=== PATIENT | male | born 1965 | race Caucasian/White ===

== ENCOUNTER 2019-08-29 08:57 | Outpatient (CLI) | payer BC, SELFPAY ==
--- NOTE | ~2019-08-29 | MR_ITS ---
EXAMINATION: MR lumbar spine wo con DATE: 08/29/2019 10:15 INDICATION: Pain and numbness of the legs. Low back pain. TECHNIQUE: Magnetic resonance imaging (MRI) of the lumbar spine was performed without intravenous con trast. Sequences included sagittal T2-weighted FSE, sagittal T2-weighted FS FSE, sagittal T1-weighted FSE, and axial T2-weighted FSE. COMPARISON: None FINDINGS: There is 3 mm retrolisthesis of L5 on S1. Vertebral body heights are normal. There is mildl y decreased disc height at L2-L3 at L3-L4 and severely decreased disc height at L5-S1. The distal spi nal cord signal intensity is normal. The conus medullaris is at L1-L2. The following disc levels are specifically discussed: L1-L2: The disc does not extend beyond the endplate margin. There is mild left facet joint osteoarthr itis. There is no neural foraminal stenosis. There is no central canal stenosis. L2-L3: The disc is bulging and has an annular fissure. There is mild bilateral facet joint osteoarthr itis. There is mild bilateral neural foraminal stenosis. There is mild central canal stenosis. L3-L4: The disc is bulging and has an annular fissure. There is mild bilateral facet joint osteoarthr itis. There is moderate bilateral neural foraminal stenosis. There is mild central canal stenosis. L4-L5: The disc is bulging. There is moderate bilateral facet joint osteoarthritis. There is moderate bilateral neural foraminal stenosis. There is mild central canal stenosis. L5-S1: The disc is bulging and has an annular fissure. There is moderate bilateral facet joint osteoa rthritis. There is moderate bilateral neural foraminal stenosis. There is mild central canal stenosis . IMPRESSION: 1. Severe lower lumbar spondylosis. Reviewed, dictated and finalized at location A.
--- NOTE | ~2019-08-29 | MR_ITS ---
EXAMINATION: MR cervical spine wo con DATE: 08/29/2019 10:15 INDICATION: Cervical degenerative disc disease. Numbness in the arms. TECHNIQUE: Magnetic resonance imaging (MRI) of the cervical spine was performed without intravenous c ontrast. Sequences included sagittal T2-weighted FSE, sagittal T2-weighted FS FSE, sagittal T1-weight ed FSE, axial MERGE, and axial T2-weighted FSE. COMPARISON: None FINDINGS: Bone alignment is normal. Vertebral body heights are normal. There is mildly decreased disc height at C3-C4 and C4-C5 and moderately decreased disc height at C5-C6 and C6-C7. There is increase d T2-weighted signal intensity in the spinal cord at C4-C5, consistent with myelomalacia. The followi ng disc levels are specifically discussed: C2-C3: The disc does not extend beyond the endplate margin. There is no uncovertebral joint osteoarth ritis. There is mild right and moderate left facet joint osteoarthritis. There is mild left neural fo raminal stenosis. There is no central canal stenosis. C3-C4: The disc is bulging. There is severe right and moderate left uncovertebral joint osteoarthriti s. There is mild bilateral facet joint osteoarthritis. There is moderate right and mild left neural f oraminal stenosis. There is mild central canal stenosis. C4-C5: The disc is bulging. There is severe right and moderate left uncovertebral joint osteoarthriti s. There is mild bilateral facet joint osteoarthritis. There is moderate right and mild left neural f oraminal stenosis. There is severe central canal stenosis with ventral and dorsal indentation of spin al cord. C5-C6: The disc is bulging. There is severe right and moderate left uncovertebral joint osteoarthriti s. There is mild bilateral facet joint osteoarthritis. There is moderate right and mild left neural f oraminal stenosis. There is mild central canal stenosis. C6-C7: The disc is bulging. There is severe bilateral uncovertebral joint osteoarthritis. There is mi ld bilateral facet joint osteoarthritis. There is moderate bilateral neural foraminal stenosis. There is mild central canal stenosis. C7-T1: The disc does not extend beyond the endplate margin. There is no uncovertebral joint osteoarth ritis. There is moderate right and mild left facet joint osteoarthritis. There is mild bilateral neur al foraminal stenosis. There is no central canal stenosis. IMPRESSION: 1. Myelomalacia at C4-C5. 2. Severe cervical spondylosis. Reviewed, dictated and finalized at location A.
[2019-08-29 11:26] LABS: Basophils Absolute Auto 0.1 K/mm3 (0.0-0.1); Eosinophils Absolute Auto 0.1 K/mm3 (0-0.3); Hematocrit 44.9 % (42.0-52.0); Hemoglobin 14.8 g/dL (14.0-18.0); Immature Granulocyte Absolute 0.01 K/mm3 (0.00-0.031); Immature Granulocyte Percent A 0.2 % (0-0.5); Lymphocytes Absolute Auto 1.56 K/mm3 (0.9-3.2); Lymphocytes Percent Auto 31.2 % (18.3-44.2); Mean Corpuscular Hemoglobin 29.5 pg (26-34); Mean Corpuscular Volume 89.6 fl (80-100); Mean Platelet Volume 8.8 fl (7.4-10.4); Monocytes Absolute Auto 0.4 K/mm3 (0.1-0.6); Monocytes Percent Auto 8.8 % (2.6-8.5); Neutrophils Absolute Auto 2.9 K/mm3 (1.3-6.7); Neutrophils Percent Auto 57.8 % (45.5-73.1); Platelet Count Result 262 k/mm3 (150-375); Red Blood Count 5.01 M/mm3 (4.6-6.20); Red Cell Distribution Width 12.4 % (11.5-14.5)
[2019-08-29 11:40] LABS: Alanine Aminotransferase 22 U/L (4-50); Albumin Level 4.5 g/dL (3.5-5.1); Alkaline Phosphatase 61 U/L (38-126); Aspartate Amino Transferase 32 U/L (17-59); Bilirubin,Total 0.8 mg/dL (0.2-1.3); Blood Urea Nitrogen 14 mg/dL (9-20); Calcium 9.2 mg/dL (8.4-10.2); Carbon Dioxide 33 mmol/L (22-30); Chloride 99 mmol/L (98-107); Cholesterol 251 mg/dL (0-200); Estimated Glomerular Filt Rate > 60; Glucose 92 mg/dL (75-110); HDL Direct 56 mg/dL; Potassium 4.6 mmol/L (3.4-5.0); Sodium 138 mmol/L (137-145); Triglycerides 77 mg/dL (<150)
[2019-08-29 11:52] LABS: LDL Cholesterol Direct 175 mg/dL
== END 2019-08-29 08:58 | disposition home or self-care (01) ==
LOC: ANHIMG 09:00
PROVIDERS: PCP Internal Medicine; Visit Provider Clinical Nurse Specialist
DX: Z00.00 Encounter for general adult medical examination without abnormal findings (principal); R20.0 Anesthesia of skin; M47.816 Spondylosis without myelopathy or radiculopathy, lumbar region; G95.89 Other specified diseases of spinal cord; M47.812 Spondylosis without myelopathy or radiculopathy, cervical region
CPT/HCPCS: 36415; 72141; 72148; 80053; 80061; 84443; 85025

== ENCOUNTER 2019-09-12 17:27 | Outpatient (CLI) | payer BC, SELFPAY ==
--- NOTE | ~2019-09-12 | MR_ITS ---
EXAMINATION: MR brain/brain stem wo/w con DATE: 09/12/2019 18:41 INDICATION: Increased weakness and difficulty balancing. TECHNIQUE: Magnetic resonance imaging (MRI) of the brain and brainstem was performed without and with 15 mL Multihance intravenous contrast. Sequences included sagittal and axial T1-weighted SE, axial d iffusion-weighted FS SE, axial T2*-weighted GRE, axial T2-weighted FLAIR, and axial T2-weighted FSE. Postcontrast axial and coronal T1-weighted SE was obtained. Apparent diffusion coefficient (ADC) maps were created. COMPARISON: None. FINDINGS: There are no areas of restricted diffusion to suggest acute infarction. No intracranial hemorrhage or abnormal intracranial mass lesion. There are no intraparenchymal signal abnormalities seen on the ot her pulse sequences. The ventricles are symmetric and normal in size. There are no abnormal extra-axi al fluid collections. Flow voids are seen in the cerebral arteries on the T2-weighted sequences consi stent with their expected patency. Visualized orbits and soft tissues are unremarkable. There are no areas of abnormal enhancement on the post contrast images. IMPRESSION: 1. Minimal brain MR. Reviewed, dictated and finalized at location A. IMPRESSION: 1. Minimal brain MR.
== END 2019-09-12 17:28 | disposition home or self-care (01) ==
PROVIDERS: PCP Internal Medicine; Visit Provider Clinical Nurse Specialist
DX: R26.89 Other abnormalities of gait and mobility (principal)
CPT/HCPCS: 70553

== ENCOUNTER 2019-09-25 08:35 | Outpatient (CLI) | payer BC, SELFPAY ==
--- NOTE | 2019-09-25 11:00 | NEURO_ITS ---
Patient Number: [id number] Impression: # Complains of numbness in upper and lower extremities. # Right ulnar neuropathy across the elbow. # No Carpal Tunnel Syndrome. # Normal needle/EMG exam; no evidence of myotonia or denervation potentials. Nerve Conduction Studies Anti Sensory Summary Table Stim Site NR Peak (ms) P-T Amp (?V) Site1 Site2 Delta-P (ms) Dist (cm) Brooks (m/s) Left Median Anti Sensory (2-3nd Digit) Wrist 2.9 53.9 Wrist 2-3nd Digit 2.9 14.0 48 Wrist 2.9 52.3 Wrist 2-3nd Digit 2.9 14.0 48 Right Median Anti Sensory (2-3nd Digit) Wrist 2.9 26.2 Wrist 2-3nd Digit 2.9 14.0 48 Wrist 2.8 25.8 Wrist 2-3nd Digit 2.9 14.0 48 Left Radial Anti Sensory (Base 1st Digit) Wrist 2.6 23.1 Wrist Base 1st Digit 2.6 0.0 Right Radial Anti Sensory (Base 1st Digit) Wrist 2.5 16.4 Wrist Base 1st Digit 2.5 0.0 Left Sup Fibular Anti Sensory (Ant Lat Mall) 14 cm 3.7 8.3 14 cm Ant Lat Mall 3.7 16.0 43 Right Sup Fibular Anti Sensory (Ant Lat Mall) 14 cm 3.6 7.1 14 cm Ant Lat Mall 3.6 16.0 44 Left Sural Anti Sensory (Lat Mall) Calf 3.9 5.9 Calf Lat Mall 3.9 16.0 41 Right Sural Anti Sensory (Lat Mall) Calf 4.3 4.1 Calf Lat Mall 4.3 17.0 40 Left Ulnar Anti Sensory (5th Digit) Wrist 3.0 41.2 Wrist 5th Digit 3.0 14.0 47 Right Ulnar Anti Sensory (5th Digit) Wrist 2.9 59.4 Wrist 5th Digit 2.9 14.0 48 Motor Summary Table Stim Site NR Onset (ms) O-P Amp (mV) Site1 Site2 Delta-0 (ms) Dist (cm) Brooks (m/s) Left Median Motor (Abd Poll Brev) Wrist 3.1 2.5 Elbow Wrist 5.4 32.0 59 Elbow 8.5 2.1 Right Median Motor (Abd Poll Brev) Wrist 3.3 3.0 Elbow Wrist 4.9 29.0 59 Elbow 8.2 2.4 Left Peroneal Motor (Vastus Med) Ankle 4.6 2.2 Popit Ankle 9.2 41.0 45 Popit 13.8 2.0 Right Peroneal Motor (Vastus Med) Ankle 4.3 4.2 Popit Ankle 8.3 40.0 48 Popit 12.6 4.1 Left Tibial Motor (Abd Clifford Brev) Ankle 5.0 2.9 Knee Ankle 9.8 43.0 44 Knee 14.8 1.8 Right Tibial Motor (Abd Clifford Brev) Ankle 4.5 2.2 Knee Ankle 9.5 44.0 46 Knee 14.0 1.3 Left Ulnar Motor (Abd Dig Minimi) Wrist 3.0 4.4 A Elbow Wrist 5.5 31.0 56 A Elbow 8.5 3.3 Right Ulnar Motor (Abd Dig Minimi) Wrist 3.0 4.2 A Elbow Wrist 6.2 30.0 48 A Elbow 9.2 2.9 B Elbow Wrist 3.8 22.0 58 B Elbow 6.8 2.0 F Wave Studies NR F-Lat (ms) L-R F-Lat (ms) Left Median (Mrkrs) (Abd Poll Brev) 30.39 0.37 Right Median (Mrkrs) (Abd Poll Brev) 30.76 0.37 Left Peroneal (Mrkrs) (EDB) 55.16 0.33 Right Peroneal (Mrkrs) (EDB) 54.83 0.33 Left Tibial (Mrkrs) (Abd Hallucis) 54.04 1.02 Right Tibial (Mrkrs) (Abd Hallucis) 55.05 1.02 Left Ulnar (Mrkrs) (Abd Dig Min) 31.95 0.45 Right Ulnar (Mrkrs) (Abd Dig Min) 31.51 0.45 EMG Side Muscle Nerve Root Ins Act Fibs Amp Dur Recrt Comment Right 1stDorInt Ulnar C8-T1 Nml Nml Nml Nml Nml Right Ext Indicis Radial (Post Int) C7-8 Nml Nml Nml Nml Nml Right Ext Digitorum Radial (Post Int) C7-8 Nml Nml Nml Nml Nml Right BrachioRad Radial C5-6 Nml Nml Nml Nml Nml Right PronatorTeres Median C6-7 Nml Nml Nml Nml Nml Right Abd Poll Brev Median C8-T1 Nml Nml Nml Nml Nml
== END 2019-09-25 08:36 | disposition home or self-care (01) ==
LOC: ANHNEURO 08:36
PROVIDERS: PCP Internal Medicine; Visit Provider Clinical Nurse Specialist
DX: R20.2 Paresthesia of skin (principal); G56.01 Carpal tunnel syndrome, right upper limb
CPT/HCPCS: 95886; 95913

== ENCOUNTER 2019-10-13 12:45 | Outpatient (CLI) | payer BC, SELFPAY ==
[2019-10-13 13:41] LABS: CRP < 0.5 mg/dL (<1.0); Creatine Kinase 117 U/L (55-170); Lactate Dehydrogenase 399 U/L (313-618)
[2019-10-13 13:49] LABS: Creatine Kinase MB 1.4 ng/mL (0.0-2.37)
[2019-10-13 14:14] LABS: Erythrocyte Sedimentation Rate 6 mm/hr (0-20)
== END 2019-10-13 12:46 | disposition home or self-care (01) ==
PROVIDERS: PCP Internal Medicine; Visit Provider Clinical Nurse Specialist
DX: M62.81 Muscle weakness (generalized) (principal)
CPT/HCPCS: 36415; 82550; 82553; 83615; 85652; 86038; 86140

== ENCOUNTER 2020-11-23 10:46 | Outpatient (CLI) | payer BC, SELFPAY ==
--- NOTE | ~2020-11-23 | US_ITS ---
EXAMINATION: US thyroid DATE: 11/23/2020 11:20 INDICATION: Nontoxic single thyroid nodule. TECHNIQUE: Multiple ultrasound images of the thyroid were obtained. COMPARISON: None. FINDINGS: The right thyroid lobe measures 5.1 x 1.5 x 1.4 cm. The left thyroid lobe measures 5.2 x 1.6 x 1.5 c m. Posterior to the inferior right thyroid, there is a 1.3 x 1.0 cm solid, hypoechoic, tbrox-jost-cr ll mass with smooth margin with punctate echogenic foci. IMPRESSION: 1. 1.3 cm mass posterior to the inferior right thyroid lobe, which may be a parathyroid adenoma or mi ldly enlarged lymph node. Correlate clinically for hyperparathyroidism. Reviewed, dictated and finalized at location A. IMPRESSION: 1. 1.3 cm mass posterior to the inferior right thyroid lobe, which may be a par athyroid adenoma or mildly enlarged lymph node. Correlate clinically for hyperp arathyroidism.
== END 2020-11-23 10:47 | disposition home or self-care (01) ==
PROVIDERS: PCP Internal Medicine; Visit Provider Nurse Practitioner
DX: E04.1 Nontoxic single thyroid nodule (principal)
CPT/HCPCS: 76536

== ENCOUNTER 2020-12-15 10:11 | Outpatient (CLI) | payer BC, SELFPAY ==
--- NOTE | ~2020-12-15 | US_ITS ---
EXAMINATION: US FNA w image guidance DATE: 12/15/2020 11:16 INDICATION: Nontoxic single thyroid nodule TECHNIQUE: A time-out was performed to verify the patient's name, date of , and procedure to be performed . The procedure and its benefits and risks were discussed with the patient. Risks specifically discus sed included bleeding and infection. The patient understood the risks and agreed to proceed. The neck was prepped and draped in the usual sterile manner. 3 mL 1% lidocaine was used for local anesthesia . Ex passes were made with a 25G needle into the lesion. Appropriate needle location was documented with continuous sonographic guidance. The specimens were passed to the nanotechnology engineering technologist i n the room. A sterile bandage was applied. There were no immediate complications. FINDINGS: Grayscale ultrasound images demonstrate biopsy needles advanced into a 1.1 x 1.0 x 0.9 cm solid hypoe choic nodule along the inferior margin of the left thyroid. Differential would include exophytic thyr oid nodule, parathyroid adenoma or enlarged lymph node. IMPRESSION: 1. Successful ultrasound-guided fine needle aspiration of indeterminate 1.1 cm solid nodule along th e inferior margin of the right thyroid with differential as detailed above. Reviewed, dictated and finalized at location A. IMPRESSION: 1. Successful ultrasound-guided fine needle aspiration of indeterminate 1.1 cm solid nodule along the inferior margin of the right thyroid with differential as detailed above.
== END 2020-12-15 10:12 | disposition home or self-care (01) ==
PROVIDERS: PCP Internal Medicine; Visit Provider Nurse Practitioner
DX: E04.1 Nontoxic single thyroid nodule (principal)
CPT/HCPCS: 10005; 88173; 88305

== ENCOUNTER 2021-02-28 01:13 | Day surgery (SDC) | payer BC, SELFPAY ==
[2021-02-15 09:28] VITALS: BMI 26.5
[2021-02-28 08:07] VITALS: BP 118/85; PULSE 59; RESP 18; TEMP 36.7; O2SAT 99
--- NOTE | 2021-02-28 08:08 | WPDANESEPPF ---
Anes - Initial Pre Proc Eval Procedure: Operation Date: 02/28/21 09:00 Proposed Procedures p Screening Colonoscopy - Meir White MD Date/Time: 02/28/21 08:08 Surgeon: Meir White MD Pre Op Diagnosis: neoplasm screening Patient Data Age: 55 Gender: M Height: 1.78 m Weight: 83.4 kg Allergies Allergy/AdvReac Type Severity Reaction Status Date / Time No Known Allergies Allergy Unverified 02/28/21 08:06 Home Medications Medication Instructions Recorded Confirmed Type naproxen 500 mg tablet 500 mg PO DAILY PRN tablet 09/01/19 02/28/21 History gabapentin 300 mg capsule 600 mg PO TID 11/12/20 02/28/21 History acetaminophen-caffeine 500 mg-65 1 tablet PO Q12H PRN 12/03/20 02/28/21 History mg tablet atorvastatin 40 mg tablet 40 mg PO QHS #90 tablet 12/03/20 02/28/21 Rx mirabegron 25 mg tablet,extended 25 mg PO DAILY 12/03/20 02/28/21 History release 24 hr Patient hx anesthesia problems: none Family hx anesthesia problems: none Results Review: All pre-operative results and documents have been reviewed as part of the pre-operative evaluation. [facility] Past Medical History Medical History (Updated 02/28/21 @ 08:10 by Malik Romero MD) Anxiety Bradycardia Chicken pox Depression Difficulty sleeping Hyperlipidemia Lumbar spondylosis Myelomalacia Tendonitis Surgical History Surgical History (Updated 11/12/20 @ 07:59 by Rebecca Mas CMA) H/O Spinal surgery 10/22/2019 Family History Family History (Updated 08/19/19 @ 12:04 by Rebecca Mas CMA) Father Arrhythmia Mother Arrhythmia Sibling Multiple sclerosis Social History Social History Smoking status: Never smoker Alcohol intake: current Drinks per week: 3 Living arrangements: with family Spiritual care concerns: No Anes - Eval Final PreProcedure Day of Procedure 02/28/21 08:08 Patient weight: overweight Heart: regular rate and rhythm Lungs: clear to auscultation and normal air movement Airway: Mallampati scale class II Neurological: alert and oriented Last oral intake: >/= 8 hours ASA classification: II Emergent: no Anesthetic plan: proceed Anesthesia type and monitoring: general GIVS Results Review: All pre-operative results and documents have been reviewed as part of the pre-operative evaluation. Informed Consent: The patient's anesthetic plan and its attendant risks and benefits were discussed with the patient/family/POA. Questions were solicited and answers provided to the satisfaction of the patient/family/POA.
[2021-02-28] MEDS: LACTATED RINGERS 1,000 ML 150 ML IV CONT (08:10)
--- NOTE | 2021-02-28 08:49 | PM.HPGS ---
History of Present Illness History of Present Illness Consent: Risks, benefits, and alternatives have been discussed and questions answered. Patient agrees to proceed with procedure. Chief complaint: neoplasm screening Narrative: Wilder Hartley is a 55 year old male here for first screening colonoscopy Review of Systems Constitutional: Constitutional: Denies headache(s) and Denies weakness Eyes: Eyes: Denies blurry vision ENT: Reports Normal hearing present, Denies headache(s) and Denies neck pain Cardiovascular: Cardiovascular: Denies chest pain and Denies dyspnea Respiratory: Respiratory: Denies dyspnea Gastrointestinal: Gastrointestinal: Reports no additional gastrointestinal complaints Genitourinary: Genitourinary: Denies dysuria Musculoskeletal: Musculoskeletal: Denies neck pain Integumentary/Breasts: Skin/Breast: Denies dry skin Neurologic: Reports Normal hearing present, Denies headache(s) and Denies weakness Psychiatric: Psychiatric: Denies anxiety Endocrine: Endocrine: Denies change in body appearance Hematologic/Lymphatic: Hematologic/Lymphatic: Denies easy bleeding Allergic/Immunologic: Allergic/Immunologic: Denies urticaria PMF Past Medical History Medical History (Updated 02/28/21 @ 08:10 by Malik Romero MD) Anxiety Bradycardia Chicken pox Depression Difficulty sleeping Hyperlipidemia Lumbar spondylosis Myelomalacia Tendonitis Surgical History Surgical History (Updated 11/12/20 @ 07:59 by Rebecca Mas CMA) H/O Spinal surgery 10/22/2019 Family History Family History (Updated 08/19/19 @ 12:04 by Rebecca Mas CMA) Father Arrhythmia Mother Arrhythmia Sibling Multiple sclerosis Social History Social History Smoking status: Never smoker Alcohol intake: current Drinks per week: 3 Living arrangements: with family Spiritual care concerns: No Meds Home Medications and Allergies Home Medications Medication Instructions Recorded Confirmed Type naproxen 500 mg tablet 500 mg PO DAILY PRN tablet 09/01/19 02/28/21 History gabapentin 300 mg capsule 600 mg PO TID 11/12/20 02/28/21 History acetaminophen-caffeine 500 mg-65 1 tablet PO Q12H PRN 12/03/20 02/28/21 History mg tablet atorvastatin 40 mg tablet 40 mg PO QHS #90 tablet 12/03/20 02/28/21 Rx mirabegron 25 mg tablet,extended 25 mg PO DAILY 12/03/20 02/28/21 History release 24 hr Allergies Allergy/AdvReac Type Severity Reaction Status Date / Time No Known Allergies Allergy Unverified 02/28/21 08:06 Vital Signs Vital Signs - 24 hr 02/28/21 08:07 Temperature 98.1 F Pulse Rate 59 L Respiratory Rate 18 Blood Pressure 118/85 Pulse Oximetry 99 Exam Const: General: comfortable and no acute distress HENMT: General nose exam: Normal nares present Eyes: General: appearance normal, both eyes and all related structures Neck: Neck: no JVD Resp: Auscultation: clear to auscultation bilaterally Cardio: Rate: regular rate Rhythm: regular rhythm GI: Inspection: non-distended GI Palp: Yes Soft to palpation Skin: General skin exam: normal color Neuro: General: gait normal Speech: normal speech Extrem: General: normal to inspection Psych: Mental Status: mental status grossly normal Assessment and Plan Assessment and plan (1) Screening for colon cancer: Code(s): Z12.11 - Encounter for screening for malignant neoplasm of colon Status: Acute Assessment and Plan: colonoscopy
[2021-02-28 09:16] VITALS: BP 102/64; PULSE 49; RESP 16; O2SAT 98
[2021-02-28 09:26] VITALS: BP 112/62; PULSE 49; RESP 18; O2SAT 99
[2021-02-28 09:36] VITALS: BP 114/80; PULSE 54; RESP 20; O2SAT 99
--- NOTE | 2021-02-28 09:50 | SUR.PHASEII ---
PT WEARING HOLTER MONITOR FOR BRADYCARDIA, HEART RATE RUNNING UPPER 40s AND LOWER 50s. PT AND SPOUSE STATE NO CONCERN PRIMARY DOCTOR IS FOLLOWING. PT AWAKE, TALKING, ORIENTED, AND STANDING WITHOUT DIFFICULTY. SPOUSE WITH PT.
== END 2021-02-28 09:58 | disposition home or self-care (01) ==
PROVIDERS: PCP Internal Medicine; Visit Provider Internal Medicine Gastroenterology
PROC: 0DJD8ZZ Inspection of Lower Intestinal Tract, Via Natural or Artificial Opening Endoscopic (ICD-10-PCS; CPT 45378; principal; 2021-02-28 09:00)
DX: Z12.11 Encounter for screening for malignant neoplasm of colon (principal); K64.8 Other hemorrhoids; E78.5 Hyperlipidemia, unspecified; F41.8 Other specified anxiety disorders; M47.816 Spondylosis without myelopathy or radiculopathy, lumbar region
CPT/HCPCS: 45378; J2704; J7120